=== PATIENT | female | born 1990 | race Two or more races ===

== ENCOUNTER 2016-04-14 22:53 | Emergency (ER) | payer SELFPAY ==
[~2016-04-14] VITALS: Ht 154.9 cm; Wt 81.6 kg
[2016-04-14] MEDS ORDERED: LIDOCAINE 2%HCL (LOCAL ANESTH.) INJ 20ML MDV ONE (23:40)
[2016-04-15 00:22] VITALS: BP 118/62
== END 2016-04-15 00:45 | disposition home or self-care (01) ==
LOC: ER 23:00
DX: S41.111A Laceration without foreign body of right upper arm, initial encounter (principal); Y08.89XA Assault by other specified means, initial encounter; Y93.89 Activity, other specified; Y99.8 Other external cause status; Y92.89 Other specified places as the place of occurrence of the external cause
CPT/HCPCS: 12004; 99283; J7030